=== PATIENT | male | born 1950 | race Caucasian/White ===

== ENCOUNTER 2021-02-09 16:16 | Inpatient (IN) | payer MEDICARE, SELFPAY ==
[~2021-02-09] VITALS: Ht 188 cm; Wt 88.5 kg
[~2021-02-09 16:16] MED LIST: MOBIC15 MG PO
[2021-02-09 17:00] LABS: HEMOGLOBIN 15.4 gm/dl (14.0-17.5); RED BLOOD COUNT 4.94 M/UL (4.20-5.50); WHITE BLOOD COUNT 15.9 K/UL (4.5-11.0)
[2021-02-09 17:53] LABS: BUN/CREATININE RATIO 21 (0-10)
[2021-02-09] MEDS ORDERED: VIRT-PHOS 250250 MG PO (19:51)
[2021-02-09] MEDS ORDERED: ALLOPURINOL300 MG PO (19:52)
[2021-02-09] MEDS ORDERED: LOSARTAN POTASS25 MG PO (19:52)
[2021-02-09] MEDS ORDERED: FAMOTIDINE40 MG PO (19:53)
[2021-02-09] MEDS ORDERED: NITROSTAT 0.40.4 MG SL (19:53)
[2021-02-09] MEDS ORDERED: LOPRESSOR 25 MG25 MG PO (19:53)
[2021-02-09] MEDS ORDERED: REPATHA INJ (20:07)
[2021-02-10 05:16] LABS: HEMOGLOBIN 14.3 gm/dl (14.0-17.5); WHITE BLOOD COUNT 14.4 K/UL (4.5-11.0)
[2021-02-10 05:17] LABS: RED BLOOD COUNT 4.39 M/UL (4.20-5.50)
[2021-02-10 05:44] LABS: BUN/CREATININE RATIO 25 (0-10)
[2021-02-10 22:10] LABS: HEMOGLOBIN 14.4 gm/dl (14.0-17.5); RED BLOOD COUNT 4.41 M/UL (4.20-5.50)
--- NOTE | 2021-02-11 08:18 | NUR ---
PT HEART RATE IS ELEVATED FROM 120 TO 150. PATIENT IS ON HEPARIN DRIP AND AN AMIODARONE DRIP. MD LUIS CALLED, NO CHANGES PRESENTLY PER
[2021-02-11 12:53] LABS: BUN/CREATININE RATIO 20 (0-10)
[2021-02-12 01:05] LABS: HEMOGLOBIN 14.1 gm/dl (14.0-17.5); RED BLOOD COUNT 4.34 M/UL (4.20-5.50); WHITE BLOOD COUNT 12.3 K/UL (4.5-11.0)
[2021-02-12 01:25] LABS: BUN/CREATININE RATIO 17 (0-10)
[2021-02-12] MEDS ORDERED: METOPROLOL SUCC25 MG PO (11:15)
[2021-02-12] MEDS ORDERED: AMIODARONE HCL200 MG PO (11:15)
[2021-02-12] MEDS ORDERED: BRILINTA 90 MG90 MG PO (11:15)
[2021-02-12] MEDS ORDERED: ATORVASTATIN CA20 MG PO (11:15)
[2021-02-12] MEDS ORDERED: ACETAMINOPHEN325 MG PO (11:15)
[2021-02-12] MEDS ORDERED: ASPIRIN EC81 MG PO (11:15)
== END 2021-02-13 11:33 | disposition home or self-care (01) | DRG 246 ==
LOC: ER1 16:16 → CCU 16:58 → CDU 16:58 → PROG CARE 16:58 → CCU 18:18 → PROG CARE 02-10 15:29
PROVIDERS: Emergency Medicine; Internal Medicine; ADMIT Internal Medicine Interventional Cardiology
PROC: 027035Z Dilation of Coronary Artery, One Artery with Two Drug-eluting Intraluminal Devices, Percutaneous Approach (ICD-10-PCS; principal; 2021-02-09)
PROC: 4A023N7 Measurement of Cardiac Sampling and Pressure, Left Heart, Percutaneous Approach (ICD-10-PCS; 2021-02-09)
PROC: B2111ZZ Fluoroscopy of Multiple Coronary Arteries using Low Osmolar Contrast (ICD-10-PCS; 2021-02-09)
DX: I97.190 Other postprocedural cardiac functional disturbances following cardiac surgery (principal); I21.A9 Other myocardial infarction type; T82.867A Thrombosis due to cardiac prosthetic devices, implants and grafts, initial encounter; T82.855A Stenosis of coronary artery stent, initial encounter; Y83.8 Other surgical procedures as the cause of abnormal reaction of the patient, or of later complication, without mention of misadventure at the time of the procedure; I48.91 Unspecified atrial fibrillation; Z20.822 Contact with and (suspected) exposure to COVID-19; I25.10 Atherosclerotic heart disease of native coronary artery without angina pectoris; J44.9 Chronic obstructive pulmonary disease, unspecified; F17.200 Nicotine dependence, unspecified, uncomplicated; I10 Essential (primary) hypertension; E11.9 Type 2 diabetes mellitus without complications; Z95.5 Presence of coronary angioplasty implant and graft; E78.5 Hyperlipidemia, unspecified
CPT/HCPCS: ECHO; 36415; 71045; 80048; 80053; 80061; 82550; 82553; 83874; 84439; 84443; 84484; 85025; 85347; 85610; 85730; 87635; 93005; 93306; 97161; 99285; C1725; C1769; C1874; C1887; J0461; J1644; J2270; J2405; J3246; J7040; Q9965

== ENCOUNTER → 2021-03-31 | Outpatient (CLI) | payer MEDICARE, SELFPAY ==
[~2021-03-31] MED LIST changes: +ACETAMINOPHEN325 MG PO; +ALLOPURINOL300 MG PO; +AMIODARONE HCL200 MG PO; +ASPIRIN EC81 MG PO; +ATORVASTATIN CA20 MG PO; +BRILINTA 90 MG90 MG PO; +FAMOTIDINE40 MG PO; +LOPRESSOR 25 MG25 MG PO; +LOSARTAN POTASS25 MG PO; +METOPROLOL SUCC25 MG PO; +NITROSTAT 0.40.4 MG SL; +REPATHA INJ; +VIRT-PHOS 250250 MG PO
== END ==
LOC: HEART 5 13:30
DX: I50.9 Heart failure, unspecified (principal); E78.5 Hyperlipidemia, unspecified
CPT/HCPCS: 93306

== ENCOUNTER → 2021-06-16 | Outpatient (CLI) | payer MEDICARE | LOC: HEART 5 10:44 | DX: I50.9 Heart failure, unspecified (principal); I25.10 Atherosclerotic heart disease of native coronary artery without angina pectoris | CPT/HCPCS: 93306 ==

== ENCOUNTER → 2021-08-12 | Outpatient (CLI) | payer MEDICARE | LOC: HEART 5 12:45 | DX: I50.9 Heart failure, unspecified (principal); I25.10 Atherosclerotic heart disease of native coronary artery without angina pectoris; I42.0 Dilated cardiomyopathy; I34.0 Nonrheumatic mitral (valve) insufficiency; I36.1 Nonrheumatic tricuspid (valve) insufficiency | CPT/HCPCS: 93306 ==

== ENCOUNTER 2022-08-14 11:32 | Emergency (ER) | payer MEDICARE ==
[~2022-08-14 11:32] MED LIST changes: -VIRT-PHOS 250250 MG PO; +[UNRECOGNIZED DRUG - OTHER] PO
[2022-08-14 13:35] LABS: HEMOGLOBIN 16.7 gm/dl (14.0-17.5); RED BLOOD COUNT 4.98 M/UL (4.20-5.50); WHITE BLOOD COUNT 11.8 K/UL (4.5-11.0)
[2022-08-14 13:55] LABS: BUN/CREATININE RATIO 25 (0-10)
[2022-08-14] MEDS ORDERED: HYDROCODON-ACE1 EAC4 PO (14:58)
== END 2022-08-14 15:30 | disposition home or self-care (01) ==
LOC: ER1 11:32
PROVIDERS: Student in an Organized Health Care Education/Training Program
DX: K40.30 Unilateral inguinal hernia, with obstruction, without gangrene, not specified as recurrent (principal); F17.210 Nicotine dependence, cigarettes, uncomplicated; I51.9 Heart disease, unspecified; Z20.822 Contact with and (suspected) exposure to COVID-19
CPT/HCPCS: 80053; 83605; 85025; 85610; 85730; 86850; 86900; 86901; 93005; 99284; U0002

== ENCOUNTER 2022-08-18 06:56 | Day surgery (SDC) | payer MEDICARE ==
[~2022-08-18] VITALS: Ht 188 cm; Wt 83.9 kg
[~2022-08-18 06:56] MED LIST changes: +HYDROCODON-ACE1 EAC4 PO
[2022-08-19 06:20] LABS: RED BLOOD COUNT 4.05 M/UL (4.20-5.50)
[2022-08-19 06:36] LABS: HEMOGLOBIN 13.4 gm/dl (14.0-17.5)
== END 2022-08-19 16:16 | disposition home or self-care (01) ==
LOC: OR 06:56 → MED SURG 4 13:29 → OR 08-19 16:16 → MED SURG 4 08-19 16:16
PROVIDERS: Surgery
DX: K40.30 Unilateral inguinal hernia, with obstruction, without gangrene, not specified as recurrent (principal); I25.10 Atherosclerotic heart disease of native coronary artery without angina pectoris
CPT/HCPCS: 36415; 85027; 93005; 94664; C1781; C9089; J0690; J1100; J1170; J2001; J2405; J2704; J3010